=== PATIENT | female | born 1970 | race Caucasian/White ===

== ENCOUNTER 2023-03-21 11:52 | Emergency (ER) | payer MEDICAID, OTHER ==
[~2023-03-21] VITALS: Ht 162.6 cm; Wt 69.9 kg
[~2023-03-21 11:52] MED LIST: WARF10TA22 PO
[2023-03-21 11:56] VITALS: BP 134/74; TEMP 98.4; O2SAT 100
== END 2023-03-21 12:27 | disposition home or self-care (01) ==
LOC: ER 11:58
DX: S60.552A Superficial foreign body of left hand, initial encounter (principal); X58.XXXA Exposure to other specified factors, initial encounter; Y93.89 Activity, other specified; Y92.89 Other specified places as the place of occurrence of the external cause; Y99.8 Other external cause status